=== PATIENT | male | born 2000 | race African-American/Black ===

== ENCOUNTER 2024-04-04 21:32 | Emergency (ER) | payer OTHER ==
[2024-04-04 21:51] VITALS: RESP 17; BMI 25.7
[2024-04-04] MEDS: SODIUM CHLORIDE 0.9% 500 ML INFUS.BAG IV ONE (23:05)
[2024-04-04] MEDS: ONDANSETRON 4 MG/2 ML VIAL IVPB ONE (23:05)
[2024-04-04] MEDS: ACETAMINOPHEN 1000 MG/100 ML BAG IVPB ONE (23:05)
[2024-04-04] MEDS ORDERED: ACETAMINOPHEN INJECTION 100 ML ONE (23:25)
[2024-04-04] MEDS ORDERED: ONDANSETRON 4 MG/2 ML VIAL ONE (23:25)
[2024-04-04 23:50] LABS: RDW 14.2 % (11.9-15.9)
[2024-04-05] LABS: BASO % 0.3 % (0-2.0); EOS % 0.2 % (0-4.5); HEMOGLOBIN 16.6 GM/dL (11.7-16.9); LYMPH % 16.2 % (8-40); MCHC 33.2 g/dl (32.0-35.9); MEAN CELL VOLUME 90.2 fl (80-96); MEAN PLT VOLUME 8.8 fl (7.5-11.1); NEUT % 71.3 % (42.8-82.8); PLATELET COUNT 231 10^3/uL (134-434); RBC 5.54 M/mm3 (4.00-5.60); WHITE BLOOD COUNT 7.1 K/mm3 (4.0-10.0)
[2024-04-05 00:21] LABS: CALCIUM 8.9 mg/dL (8.5-10.1)
[2024-04-05 00:22] LABS: ALBUMIN 3.9 g/dl (3.4-5.0); BLOOD UREA NITROGEN 12.6 mg/dL (7-18); MAGNESIUM 1.9 mg/dL (1.8-2.4)
[2024-04-05 00:25] LABS: CREATININE 1.2 mg/dL (0.55-1.3); PHOSPHOROUS 2.6 mg/dL (2.5-4.9)
[2024-04-05 00:26] LABS: BILIRUBIN,TOTAL 0.6 mg/dL (0.2-1); TOT PROT 7.6 g/dl (6.4-8.2)
[2024-04-05 01:35] LABS: ANISOCYTOSIS 1+; MACROCYTOSIS 0; TEAR DROP CELLS 1+
[2024-04-05 03:25] VITALS: BP 129/81; PULSE 82; TEMP 98.9
== END 2024-04-05 03:26 | disposition home or self-care (01) ==
LOC: JER 21:32
PROC: 3E033NZ Introduction of Analgesics, Hypnotics, Sedatives into Peripheral Vein, Percutaneous Approach (ICD-10-PCS; principal; 2024-04-04)
PROC: 3E033GC Introduction of Other Therapeutic Substance into Peripheral Vein, Percutaneous Approach (ICD-10-PCS; 2024-04-04)
DX: R11.2 Nausea with vomiting, unspecified (principal); R19.7 Diarrhea, unspecified; R10.84 Generalized abdominal pain; R50.9 Fever, unspecified; R51.9 Headache, unspecified; R53.81 Other malaise; R53.83 Other fatigue; R00.0 Tachycardia, unspecified; Z20.822 Contact with and (suspected) exposure to COVID-19
CPT/HCPCS: 0241U-QW; 36415; 80053; 83690; 83735; 84100; 85025; 99284-25; J0131